=== PATIENT | male | born 1950 | race Hispanic/Latino ===

== ENCOUNTER 2017-11-23 07:30 | Day surgery (SDC) | payer MEDICARE ==
[~2017-11-23 07:30] MED LIST: MARCAINE 0.5% INFILTRATI ONE; NACL 0.9% IR ONE
[2017-11-23] MEDS ORDERED: ZOFRAN IV PRN (07:55)
[2017-11-23] MEDS ORDERED: DILAUDID IV PRN (07:55)
[2017-11-23] MEDS ORDERED: MARCAINE 0.5% 30 ML INFILTRATI ONE (07:59)
[2017-11-23] MEDS ORDERED: NEURONTIN PO NR (08:00)
[2017-11-23] MEDS ORDERED: VERSED IV NR (08:00)
[2017-11-23] MEDS ORDERED: LACTATED RINGERS 1,000 ML IV SCH (08:00)
[2017-11-23] MEDS ORDERED: XYLOCAINE MPF 2% ONE (09:03)
[2017-11-23] MEDS ORDERED: DIPRIVAN 10 MG/ML IV ONE (09:03)
[2017-11-23] MEDS ORDERED: ZEMURON IV ONE (09:03)
[2017-11-23] MEDS ORDERED: SUBLIMAZE ONE ×2 (09:03→11:21)
[2017-11-23] MEDS ORDERED: QUELICIN ONE (09:03)
--- NOTE | 2017-11-23 09:21 | Anesthesia Consultation ---
Anesthesia Consult and Med Hx - Airway Anesthetic Teeth Evaluation: Good ROM Head & Neck: Adequate Mental/Hyoid Distance: Adequate Mallampati Class: Class III Intubation Access Assessment: Probably Good - Pulmonary Exam CTA: Yes - Cardiac Exam Cardiac Exam: No Murmur - Pre-Operative Health Status ASA Pre-Surgery Classification: ASA1, ASA2 - Pulmonary Hx Smoking: Yes (FROM [id number]') - Cardiovascular System Hx Hypertension: No - Central Nervous System Hx Seizures: No CVA: No Hx Psychiatric Problems: No - Gastrointestinal Hx Ulcer: No Hx Gastroesophageal Reflux Disease: No - Endocrine Hx Renal Disease: No - Other Systems Hx Alcohol Use: No Hx Substance Use: No Hx Cancer: No
--- NOTE | 2017-11-23 09:21 | Anesthesia Day of Surgery ---
Anesthesia Day of Surgery - Day of Surgery Patient Examined: Yes Patient H&P Reviewed: Yes Patient is NPO: Yes Beta Blockers: No Cardiac Clearance: No Pulmonary Clearance: No
[2017-11-23] MEDS ORDERED: ceFAZolin 2 GM in NACL 0.9% 100 ML IV ONE (10:16)
[2017-11-23] MEDS ORDERED: HEPARIN SUB-Q NR (10:30)
[2017-11-23] MEDS ORDERED: ceFAZolin 2 GM in NACL 0.9% 100 ML IV NR (10:30)
[2017-11-23] MEDS ORDERED: ePHEDrine 50 MG/5 ML-0.9% NACL IV ONE (10:53)
[2017-11-23] MEDS ORDERED: ANCEF/STERILE WATER 2 GM/20 ML 2 GM/20 ML SYRINGE IV SCH (11:00)
[2017-11-23] MEDS ORDERED: BLOXIVERZ ONE (12:54)
[2017-11-23] MEDS ORDERED: TORADOL ONE (12:54)
[2017-11-23] MEDS ORDERED: ROBINUL ONE (12:54)
[2017-11-23] MEDS ORDERED: DECADRON ONE (13:00)
[2017-11-23] MEDS ORDERED: ZOFRAN ONE (13:00)
--- NOTE | 2017-11-23 13:06 | Post Operative Note ---
Pre-op diagnosis: BIH Post-op diagnosis: same Findings: Right - direct Left - indirect Anesthesia: GETA Surgeon: BRENDEN SINGH Estimated blood loss: 50-100ml Pathology: none Condition: stable Disposition: PACU
--- NOTE | 2017-11-23 13:07 | Procedure Note ---
Date of procedure: 11/23/17 Pre-op diagnosis: BIH Post-op diagnosis: same Procedure: Bilateral laparoscopic hernia repair Findings: Right - direct Left - indirect Anesthesia: JJA Surgeon: BRENDEN SINGH Estimated blood loss: 50-100ml Pathology: none Condition: stable Disposition: PACU
[2017-11-23] MEDS: DILAUDID IV PRN ×2 (13:50→14:11)
[2017-11-23] MEDS ORDERED: PERCOCET 5/325 PO PRN (13:57)
[2017-11-23 16:07] VITALS: BP 143/77
== END 2017-11-23 15:36 | disposition home or self-care (01) ==
LOC: OR 07:30
PROVIDERS: ATTEND Surgery
DX: K40.91 Unilateral inguinal hernia, without obstruction or gangrene, recurrent (principal); K40.90 Unilateral inguinal hernia, without obstruction or gangrene, not specified as recurrent; E66.9 Obesity, unspecified; Z87.891 Personal history of nicotine dependence; Z68.31 Body mass index [BMI] 31.0-31.9, adult
CPT/HCPCS: 49650; 49651; A4217; C1726; C1781; J0330; J0690; J1100; J1170; J1644; J1885; J2250; J2405; J2704; J2710; J3010; J7120